=== PATIENT | female | born 1970 | race American Indian/Alaskan Native ===

== ENCOUNTER 2021-07-09 12:45 | Inpatient (IN) ==
[2021-07-09 13:56] LABS: Albumin Level 3.4 gm/dl (3.4-5.0); BUN Creatinine Ratio 20.7 (10-20); Calcium 8.6 mg/dl (8.5-10.1); Creatinine Clr Calc Pharmacy 111.5 ml/min; Est GFR (African American) 121.2 ml/min; Est GFR (Non-African American) 104.6 ml/min; Potassium 3.7 mmol/L (3.5-5.1)
[2021-07-09 14:07] LABS: Bilirubin,Total 0.3 mg/dl (0.2-1); Globulin 3.5 gm/dl (2.5-4.0); Total Protein 6.9 gm/dl (6.4-8.2)
[2021-07-09 14:19] LABS: Basophils # (auto) 0.02 K/uL (0-0.2); Basophils % (auto) 0.3 %; Eosinophils # (auto) 0.39 K/uL (0-0.5); Eosinophils % (auto) 5.6 %; Hematocrit (blood only) 35.9 % (37-47); Hemoglobin 11.8 g/dL (12.0-16.0); Immature Granulocytes # (auto) 0.03 K/uL (0.00-0.02); Immature Granulocytes % (auto) 0.4 %; Lymphocytes # (auto) 2.05 K/uL (1.2-3.4); Lymphocytes % (auto) 29.6 %; Mean Corpuscular Hgb Conc 32.9 g/dL (32-36); Mean Corpuscular Volume 85.1 fL (80-100); Monocytes # (auto) 0.27 K/uL (0.11-0.59); Monocytes % (auto) 3.9 %; Neutrophils # (auto) 4.17 K/uL (1.4-6.5); Neutrophils % (auto) 60.2 %; Platelet Count 3 K/uL (130-400); RDW Coefficient of Variation 14.8 % (11.5-14.5); Red Blood Count 4.22 M/uL (4.2-5.4); White Blood Count 6.93 K/uL (4.8-10.8)
[2021-07-09 14:45] LABS: Hematocrit (blood only) 37.4 % (37-47); Hemoglobin 12.1 g/dL (12.0-16.0); Mean Corpuscular Hgb Conc 32.4 g/dL (32-36); Mean Corpuscular Volume 86.6 fL (80-100); Platelet Count 1 K/uL (130-400); RDW Coefficient of Variation 14.7 % (11.5-14.5); RDW Standard Deviation 46.1 fL (36.4-46.3); Red Blood Count 4.32 M/uL (4.2-5.4); White Blood Count 8.44 K/uL (4.8-10.8)
[2021-07-09] MEDS ORDERED: dexAMETHasone 4 MG TAB PO ONE ×2 (15:00→15:15)
[2021-07-09] MEDS ORDERED: PANTOprazole 40 MG TAB PO STA (15:02)
[2021-07-09 15:19] LABS: Reticulocyte % 1.8 % (0.5-2.0); Reticulocytes # 0.08 10^6/uL (0.02-0.10)
[2021-07-09 15:38] LABS: Basophils # (auto) 0.02 K/uL (0-0.2); Basophils % (auto) 0.2 %; Eosinophils # (auto) 0.42 K/uL (0-0.5); Immature Granulocytes # (auto) 0.05 K/uL (0.00-0.02); Immature Granulocytes % (auto) 0.6 %; Lymphocytes # (auto) 2.54 K/uL (1.2-3.4); Lymphocytes % (auto) 30.1 %; Monocytes # (auto) 0.35 K/uL (0.11-0.59); Monocytes % (auto) 4.1 %; Neutrophils # (auto) 5.06 K/uL (1.4-6.5); Polychromasia 1+
--- NOTE | 2021-07-09 15:41 | CT Scan Report ---
HEAD CT NONCONTRAST CT DOSE: 537.48 mGy.cm HISTORY: Headache, thrombocytopenia TECHNIQUE: Multiaxial CT images of the head were performed without the use of intravenous contrast. A utomated exposure control was utilized for this study. A dose lowering technique was utilized adheri ng to the principles of ALARA. Comparison: None. Findings: Mild mucosal thickening within the left sphenoid sinus posteriorly. The remaining paranasal sinuses and mastoid air cells are clear. The calvarium and skull base are intact. The ventricles and sulci are within normal limits. There is no mass, hematoma, midline shift, or acute infarct. Impression: No acute intracranial abnormality. ACT 112: Negative or not required by law. Electronically signed by: Duong Campos M.D. 07/09/2021 3:40 PM
--- NOTE | 2021-07-09 16:17 | History & Physical Report ---
Date of Service July 09, 2021 Assessment & Plan (1) Thrombocytopenia: Plan: 50 y/o F Hx HTN, DM II, anxiety/depression. The pt presents with heavy vaginal bleeding and upural areas over her lower extremities and less so over her trunk and upper extremities. She has not had fevers and denies a headache, confusion or abdominal pain. Inital labs are notable for a platelet count of 1. She had received Pfizer COVID vaccine this month, however, there are no reports of associated ITP with this particular vaccine. 1) Thrombocytopenia - presumed ITP - received dexamethasone in ER and should remain on a 4 day course. As she is actively bleeding, we will likely transfuse one unit of platelets. We are pending the result of a PT, PTT, PF4, dimer, fibrinogen to r/o Vaccine-Induced Immune Thrombocytopenia and Thrombosis prior to transfusing. 2) DM - sliding scale 3) HTN - cont Losartan, HCTZ 4) Anxiety/depression - cont duloxetine, carbamazepine, clonazepam, Keppra Full code Total time for this admit including review of labs, meds, imaging, records - discussion with pt and ER attending 38 min (2) Vaginal bleeding: (3) HTN (hypertension): (4) Depression: History of Present Illness Chief Complaint: vaginal bleeding, petechiae Primary Care Provider: Carlos Eduardo Catarino 50 y/o F Hx HTN, DM II, anxiety/depression. The pt presents with heavy vaginal bleeding and upural areas over her lower extremities and less so over her trunk and upper extremities. She has not had fevers and denies a headache, confusion or abdominal pain. Inital labs are notable for a platelet count of 1. She had received Pfizer COVID vaccine this month, however, there are no reports of associated ITP with this particular vaccine. PMH: 1) HTN 2) DM II 3) Depression/anxiety 4) Insomnia Surgical: 1) Cholecystectomy 2) Lithotripsy 3) C section Social: Does not smoke or drink Family: Noncontributory t current complaint Allergies Allergy/AdvReac Type Severity Reaction Status Date / Time Penicillins Allergy Severe Anaphylaxis Unverified 07/09/21 15:09 Home Medications Medication Instructions Recorded Confirmed Type carbamazepine 200 mg tablet 200 mg PO HS 07/09/21 07/09/21 History (Tegretol) clonazepam 1 mg tablet 1 mg PO HS 07/09/21 07/09/21 History duloxetine 20 mg capsule,delayed 20 mg PO QAM 07/09/21 07/09/21 History release hydrochlorothiazide 12.5 mg tablet 12.5 mg PO QAM PRN 07/09/21 07/09/21 History levetiracetam 250 mg tablet 250 mg PO QAM 07/09/21 07/09/21 History losartan 50 mg tablet 50 mg PO PM 07/09/21 07/09/21 History metformin 500 mg tablet 500 mg PO BID 07/09/21 07/09/21 History propranolol 10 mg tablet 10 mg PO BID 07/09/21 07/09/21 History Past Med/Surg History Social History Smoking Status: Never smoker Feels Safe at Home: Yes Review of Systems Review of Systems: Gen: Denies fevers, night sweats, rigors, fatigue, malaise, weight loss/gain ENT: Denies congestion, throat pain, hearing loss Eyes: Denies acute visual changes CV: Denies CP, palpitations Pulmonary: Denies SOB, cough, wheezing GI: Denies N/V, diarrhea, constipation Neuro: Denies acute or unilateral weakness, acute gait impairment, headache or acute visual changes Musculoskeletal: Denies joint pain, inflammation Endocrine: Denies polydipsia, polyuria Skin: Purpuric rash over back of LEs and area of upper ext and trunk Physical Exam Physical Exam: General: AAO x 3, no distress ENT: No erythema or exudates, no thrush Eyes: JACOB, EOMI Head and neck: Normocephalic, atraumatic, No JVD, neck is supple. Chest/heart: Nontender, S1,2, RRR, no murmurs, no gallops Lungs: CTAB, no wheezing or crackles Abdomen: Nontender, nondistended, BS+ Neuro: AAO x 3, speech is clear, no unilateral weakness or loss of sensation, coordination intact Musculoskeletal: No joint inflammation, muscle tenderness, FROM Skin: Purpura are coalesced over LEs and sparse over upper extrems and trunk Extremities: No clubbing, cyanosis, edema Results & Data Results & Data ([facility]) Vital Signs (Past 12 Hours) Vital Signs Temp Pulse Pulse Resp BP BP Pulse Ox 07/09/21 16:00 78 18 103/71 99 07/09/21 14:46 93 H 18 105/67 100 07/09/21 13:16 97.7 F 103 H 18 107/73 98 PG Care Time/CCT Total # of Minutes Spent Total Time Spent with Patient: Total time spent is greater than 50% in coordination of care (as documented) at patient's floor/unit and/or counseling patient: Coding Level of Care Code 78488 Initial Inpt Care Lvl 3 Diagnoses Thrombocytopenia D69.6 Vaginal bleeding N93.9 HTN (hypertension) I10 Depression F32.9
[2021-07-09 16:28] LABS: Reticulocyte % 1.8 % (0.5-2.0); Reticulocytes # 0.07 10^6/uL (0.02-0.10)
[2021-07-09 17:28] LABS: Fibrinogen 261 mg/dl (184-400); Partial Thromboplastin Time 25.1 Seconds (21.0-31.0); Prothrombin Time 9.9 Seconds (9.0-12.0)
[2021-07-09 17:35] LABS: D Dimer 1220 ug/L FEU (0-500)
--- NOTE | 2021-07-09 18:21 | Emergency Department Note ---
History of Present Illness General Chief complaint: Vaginal Bleeding Stated complaint: Vaginal Bleeding, headache Source: patient and RN notes reviewed Mode of arrival: ambulatory Limitations: no limitations History of Present Illness Provider complaint: Heavy vaginal bleeding, bruising. Maximum Pain Intensity: 5 This patient is a 50-year-old female who presents to the emergency department with complaints of vaginal bleeding x2 days with clots. Patient states she has developed a petechial rash and bruising. 1 month ago the patient tested positive for Covid in [place] and approximately 1 week ago she had her first Pfizer vaccination. Patient states she has been fairly asymptomatic until now. She did develop a slight headache today. She denies any vomiting, blood in the stools or difficulty urinating. She denies any chest pain or shortness of breath. She has not had a fever recently. Home Medications Medication Instructions Recorded Confirmed Type carbamazepine 200 mg tablet 200 mg PO HS 07/09/21 07/09/21 History (Tegretol) clonazepam 1 mg tablet 1 mg PO HS 07/09/21 07/09/21 History duloxetine 20 mg capsule,delayed 20 mg PO QAM 07/09/21 07/09/21 History release hydrochlorothiazide 12.5 mg tablet 12.5 mg PO QAM PRN 07/09/21 07/09/21 History levetiracetam 250 mg tablet 250 mg PO QAM 07/09/21 07/09/21 History losartan 50 mg tablet 50 mg PO PM 07/09/21 07/09/21 History metformin 500 mg tablet 500 mg PO BID 07/09/21 07/09/21 History propranolol 10 mg tablet 10 mg PO BID 07/09/21 07/09/21 History Allergies Allergy/AdvReac Type Severity Reaction Status Date / Time Penicillins Allergy Severe Anaphylaxis Unverified 07/09/21 15:09 Past Med/Surg History Social History Smoking Status: Never smoker Hx Alcohol Use: No Hx Substance Use: No Preferred Language: Italian Communication Ability: Effective 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 and A total of 10 systems reviewed and were otherwise negative Physical Exam Vital Signs Vital Signs - 24 hr 07/09/21 13:16 07/09/21 14:46 07/09/21 16:00 Temperature 36.5 C Temperature Source Temporal Artery Scan Pulse Rate 103 H Pulse Rate [Apical] 93 H 78 Pulse Rhythm [Apical] Regular Respiratory Rate 18 18 18 Blood Pressure 107/73 Blood Pressure [Left Arm] 105/67 103/71 Blood Pressure Mean 84 Blood Pressure Mean [Left Arm] 79 81 Pulse Oximetry 98 100 99 Oxygen Delivery Method Room Air Room Air Sepsis Recent Fever Within 48 Hours No Sepsis New/Unexplained Change in Mental Status No Sepsis Action Taken by Nursing No Action Required Vital signs reviewed. General: Well-appearing 50 yo female, in no significant distress. HEENT: No scleral icterus, PERRLA, neck supple. Petechiae noted to the oral mucosa, lips. Cardiovascular: Regular rate and rhythm, no extra sounds. Pulmonary: Clear to auscultation bilaterally, normal work of breathing. Abdomen: Soft, nontender, nondistended, positive bowel sounds. Musculoskeletal: Atraumatic, no peripheral edema. : Deferred as pt fully dressed waist down. Neurologic: Patient awake alert and oriented x 3, full strength in all 4 extremities. Cranial nerves 2 through 12 grossly intact. Skin: Warm, dry, petechial rash noted to the lower extremities bilaterally. Bruising noted to the upper extremities bilaterally Course Administered Medications Discontinued Medications Dexamethasone (Dexamethasone 4 Mg Tab) 40 mg PO NOW ONE Stop: 07/09/21 15:16 Last Admin: 07/09/21 15:36 Dose: 40 mg Documented by: [id number] Pantoprazole Sodium (Pantoprazole 40 Mg Tab) 40 mg PO NOW STA Stop: 07/09/21 15:03 Last Admin: 07/09/21 15:19 Dose: 40 mg Documented by: [id number] Medical Decision Making Differential Diagnosis Differential diagnosis of this patient's presentation includes viral etiology, malignancy, medication effect, vaccine reaction, dysfunctional uterine bleeding, ruptured ovarian cyst, . Medical Records Attestation: I reviewed the patient's medical records. Home Medications Current Medication List: was personally reviewed by me Laboratory Data Attestation: I reviewed the patient's lab results. Result diagrams: 07/09/21 14:30 07/09/21 13:21 Lab Results 07/09/21 07/09/21 07/09/21 Range/Units 13:21 13:21 13:21 WBC 6.93 (4.8-10.8) K/uL RBC 4.22 (4.2-5.4) M/uL Hgb 11.8 L (12.0-16.0) g/dL Hct 35.9 L (37-47) % MCV 85.1 (80-100) fL MCH 28.0 (25-34) pg MCHC 32.9 (32-36) g/dL RDW Std Deviation 46.0 (36.4-46.3) fL RDW Coeff of Modesta 14.8 H (11.5-14.5) % Plt Count 3 L* (130-400) K/uL Immature Gran % (Auto) 0.4 % Neut % (Auto) 60.2 % Lymph % (Auto) 29.6 % Mclean % (Auto) 3.9 % Eos % (Auto) 5.6 % Baso % (Auto) 0.3 % Reticulocyte % (Auto) 1.8 (0.5-2.0) % Neut # (Auto) 4.17 (1.4-6.5) K/uL Lymph # (Auto) 2.05 (1.2-3.4) K/uL Mclean # (Auto) 0.27 (0.11-0.59) K/uL Eos # (Auto) 0.39 (0-0.5) K/uL Baso # (Auto) 0.02 (0-0.2) K/uL Reticulocyte # 0.08 (0.02-0.10) 10^6/uL Immature Gran # (Auto) 0.03 H (0.00-0.02) K/uL Polychromasia Peripher Smr Path Cons Sodium 142 (136-145) mmol/L Potassium 3.7 (3.5-5.1) mmol/L Chloride 107 (98-107) mmol/L Carbon Dioxide 27 (21-32) mmol/L Anion Gap 8.0 (3-11) BUN 13 (7-18) mg/dl Creatinine 0.63 (0.6-1.2) mg/dl Est Cr Clr Drug Dosing 111.5 ml/min Est GFR ( Amer) 121.2 ml/min Est GFR (Non-Af Amer) 104.6 ml/min BUN/Creatinine Ratio 20.7 H (10-20) Glucose 154 H (70-99) mg/dl Calcium 8.6 (8.5-10.1) mg/dl Total Bilirubin 0.3 (0.2-1) mg/dl AST 38 H (15-37) U/L ALT 54 (12-78) U/L Alkaline Phosphatase 100 (45-117) U/L Total Protein 6.9 (6.4-8.2) gm/dl Albumin 3.4 (3.4-5.0) gm/dl Globulin 3.5 (2.5-4.0) gm/dl Albumin/Globulin Ratio 1.0 (0.9-2) Blood Type Antibody Screen 07/09/21 07/09/21 07/09/21 Range/Units 14:30 14:30 14:30 WBC 8.44 (4.8-10.8) K/uL RBC 4.32 (4.2-5.4) M/uL Hgb 12.1 (12.0-16.0) g/dL Hct 37.4 (37-47) % MCV 86.6 (80-100) fL MCH 28.0 (25-34) pg MCHC 32.4 (32-36) g/dL RDW Std Deviation 46.1 (36.4-46.3) fL RDW Coeff of [place] 14.7 H (11.5-14.5) % Plt Count 1 L* D (130-400) K/uL Immature Gran % (Auto) 0.6 % Neut % (Auto) 60.0 % Lymph % (Auto) 30.1 % Mclean % (Auto) 4.1 % Eos % (Auto) 5.0 % Baso % (Auto) 0.2 % Reticulocyte % (Auto) (0.5-2.0) % Neut # (Auto) 5.06 (1.4-6.5) K/uL Lymph # (Auto) 2.54 (1.2-3.4) K/uL Mclean # (Auto) 0.35 (0.11-0.59) K/uL Eos # (Auto) 0.42 (0-0.5) K/uL Baso # (Auto) 0.02 (0-0.2) K/uL Reticulocyte # (0.02-0.10) 10^6/uL Immature Gran # (Auto) 0.05 H (0.00-0.02) K/uL Polychromasia 1+ Peripher Smr Path Cons Cancelled Sodium (136-145) mmol/L Potassium (3.5-5.1) mmol/L Chloride (98-107) mmol/L Carbon Dioxide (21-32) mmol/L Anion Gap (3-11) BUN (7-18) mg/dl Creatinine (0.6-1.2) mg/dl Est Cr Clr Drug Dosing ml/min Est GFR ( Amer) ml/min Est GFR (Non-Af Amer) ml/min BUN/Creatinine Ratio (10-20) Glucose (70-99) mg/dl Calcium (8.5-10.1) mg/dl Total Bilirubin (0.2-1) mg/dl AST (15-37) U/L ALT (12-78) U/L Alkaline Phosphatase (45-117) U/L Total Protein (6.4-8.2) gm/dl Albumin (3.4-5.0) gm/dl Globulin (2.5-4.0) gm/dl Albumin/Globulin Ratio (0.9-2) Blood Type O Positive Antibody Screen NEGATIVE 07/09/21 Range/Units 16:16 WBC (4.8-10.8) K/uL RBC (4.2-5.4) M/uL Hgb (12.0-16.0) g/dL Hct (37-47) % MCV (80-100) fL MCH (25-34) pg MCHC (32-36) g/dL RDW Std Deviation (36.4-46.3) fL RDW Coeff of Mod[place] (11.5-14.5) % Plt Count (130-400) K/uL Immature Gran % (Auto) % Neut % (Auto) % Lymph % (Auto) % Mclean % (Auto) % Eos % (Auto) % Baso % (Auto) % Reticulocyte % (Auto) 1.8 (0.5-2.0) % Neut # (Auto) (1.4-6.5) K/uL Lymph # (Auto) (1.2-3.4) K/uL Mclean # (Auto) (0.11-0.59) K/uL Eos # (Auto) (0-0.5) K/uL Baso # (Auto) (0-0.2) K/uL Reticulocyte # 0.07 (0.02-0.10) 10^6/uL Immature Gran # (Auto) (0.00-0.02) K/uL Polychromasia Peripher Smr Path Cons Sodium (136-145) mmol/L Potassium (3.5-5.1) mmol/L Chloride (98-107) mmol/L Carbon Dioxide (21-32) mmol/L Anion Gap (3-11) BUN (7-18) mg/dl Creatinine (0.6-1.2) mg/dl Est Cr Clr Drug Dosing ml/min Est GFR ( Amer) ml/min Est GFR (Non-Af Amer) ml/min BUN/Creatinine Ratio (10-20) Glucose (70-99) mg/dl Calcium (8.5-10.1) mg/dl Total Bilirubin (0.2-1) mg/dl AST (15-37) U/L ALT (12-78) U/L Alkaline Phosphatase (45-117) U/L Total Protein (6.4-8.2) gm/dl Albumin (3.4-5.0) gm/dl Globulin (2.5-4.0) gm/dl Albumin/Globulin Ratio (0.9-2) Blood Type Antibody Screen Imaging Data Radiologist's Impression: Head CT 07/09/21 15:[address] DOSE: 537.48 mGy.cm HISTORY: Headache, thrombocytopenia TECHNIQUE: Multiaxial CT images of the head were performed without the use of intravenous contrast. Automated exposure control was utilized for this study. A dose lowering technique was utilized adhering to the principles of ALARA. Comparison: None. Findings: Mild mucosal thickening within the left sphenoid sinus posteriorly. The remaining paranasal sinuses and mastoid air cells are clear. The calvarium and skull base are intact. The ventricles and sulci are within normal limits. There is no mass, hematoma, midline shift, or acute infarct. Impression: No acute intracranial abnormality. ACT 112: Negative or not required by law. Electronically signed by: Duong Campos M.D. 07/09/2021 3:40 PM Blood Pressure Blood Pressure Findings: Normal blood pressure Blood Pressure Disposition: did not require urgent referral MDM Narrative This patient was evaluated and appeared to be in no significant distress. IV access was obtained and laboratory work was drawn. Patient's lab work was initially drawn at triage and patient was noted to have a platelet count of 3000. Repeat confirms profound thrombocytopenia. Patient has a stable hemoglobin of 11.8 and her vital signs have remained stable. Patient's creatinine is 0.68. She was hydrated with normal saline solution. Head CT was performed as the patient complained of a headache. The study is negative for acute intracranial abnormality. I did discuss the case with Dr. Choe of hematology. He has recommended dexamethasone 40 mg p.o. daily x4 days. He has stated that as the patient is bleeding this is an indication for platelet transfusion however she may have a thrombotic complication. As the patient's vital signs have remained stable and her hemoglobin is nearly 12, urgent transfusion with platelets did not seem to be prudent given the risk. Patient was given 40 mg of p.o. Protonix and 40 mg of p.o. dexamethasone. The case was discussed with the hospitalist service, Dr. Carnes. He will evaluate the patient for admission and further management. Impression & Plan Acute idiopathic thrombocytopenic purpura, Vaginal bleeding, Lab test positive for detection of COVID-19 virus Discharge Plan Visit Data Chief Complaint: Vaginal Bleeding Stated Complaint: Vaginal Bleeding, headache Discharge Problem: Acute idiopathic thrombocytopenic purpura, Vaginal bleeding, Lab test positive for detection of COVID-19 virus Patient Disposition: Admitted As Inpatient Discharge Instructions Interventions: ED Discharge Assessment Last Done: 07/09/21 19:27
[2021-07-09] MEDS ORDERED: carBAMazepine 200 MG TABLET PO SCH (21:00)
[2021-07-09] MEDS: PROPRANOLOL HCL 10 MG TAB PO SCH (21:53)
[2021-07-09] MEDS: LOSARTAN POTASSIUM 50 MG TAB PO SCH (21:53)
[2021-07-09] MEDS: clonazePAM 1 MG TAB PO SCH (21:54)
[2021-07-09 22:50] LABS: Appearance Urine Cloudy (Clear); Color Urine Red
[2021-07-09 22:54] LABS: Bacteria Urine Automated Negative (Negative); Bilirubin Urine Negative (Negative); Blood Urine 3+ (Negative); Epithelial Cell Urine Auto >30 /lpf (0-5); Glucose Urine UA Negative (Negative); Ketones Urine Negative (Negative); Leukocyte Esterase Urine Negative (Negative); Nitrite Urine Negative (Negative); Protein Urine 1+ (Negative); RBC Urine Automated >30 /hpf (0-4); Specific Gravity Urine 1.023 (1.000-1.030); Urobilinogen Urine Negative (Negative); pH Urine 5.5 (4.5-7.5)
[2021-07-09 23:58] LABS: Hematocrit (blood only) 33.4 % (37-47); Mean Corpuscular Hgb Conc 32.9 g/dL (32-36); Platelet Count 1 K/uL (130-400); RDW Coefficient of Variation 14.7 % (11.5-14.5); RDW Standard Deviation 45.7 fL (36.4-46.3); Red Blood Count 3.93 M/uL (4.2-5.4); White Blood Count 6.25 K/uL (4.8-10.8)
[2021-07-09 23:59] LABS: Platelet Estimate SIGNIFIC DECREASED (Normal)
[2021-07-10 07:46] LABS: Basophils # (auto) 0.01 K/uL (0-0.2); Basophils % (auto) 0.1 %; Eosinophils # (auto) 0.01 K/uL (0-0.5); Eosinophils % (auto) 0.1 %; Hemoglobin 10.8 g/dL (12.0-16.0); Immature Granulocytes # (auto) 0.07 K/uL (0.00-0.02); Immature Granulocytes % (auto) 0.6 %; Lymphocytes # (auto) 1.67 K/uL (1.2-3.4); Lymphocytes % (auto) 14.8 %; Mean Corpuscular Hemoglobin 28.1 pg (25-34); Mean Corpuscular Hgb Conc 32.7 g/dL (32-36); Mean Corpuscular Volume 85.9 fL (80-100); Monocytes # (auto) 0.35 K/uL (0.11-0.59); Monocytes % (auto) 3.1 %; Neutrophils # (auto) 9.16 K/uL (1.4-6.5); Neutrophils % (auto) 81.3 %; Platelet Count 1 K/uL (130-400); Platelet Estimate SIGNIFIC DECREASED (Normal); RDW Coefficient of Variation 14.9 % (11.5-14.5); RDW Standard Deviation 46.1 fL (36.4-46.3); Red Blood Count 3.84 M/uL (4.2-5.4); White Blood Count 11.27 K/uL (4.8-10.8)
[2021-07-10 08:18] LABS: BUN Creatinine Ratio 18.1 (10-20); Calcium 8.4 mg/dl (8.5-10.1); Creatinine Clr Calc Pharmacy 89.2 ml/min; Est GFR (African American) 101.2 ml/min; Est GFR (Non-African American) 87.3 ml/min; Potassium 3.8 mmol/L (3.5-5.1)
[2021-07-10] MEDS: hydroCHLOROthiazide 25 MG TAB PO SCH (08:21)
[2021-07-10] MEDS: dexAMETHasone 4 MG TAB PO SCH (08:22)
[2021-07-10] MEDS: DULoxetine HCL 20 MG CAP PO SCH (08:23)
[2021-07-10] MEDS: PROPRANOLOL HCL 10 MG TAB PO SCH ×2 (08:23→20:55)
[2021-07-10] MEDS: levETIRAcetam 250 MG TAB PO SCH (08:23)
[2021-07-10] MEDS: PANTOprazole 40 MG TAB PO SCH (08:24)
--- NOTE | 2021-07-10 10:26 | Consultation Report ---
HEMATOLOGY CONSULTATION DATE OF CONSULT: 07/09/2021. REASON FOR CONSULTATION: Immune thrombocytopenia. HISTORY OF PRESENT ILLNESS: The patient is a very pleasant 50-year-old [place] female who presents t o [facility] on 07/09/2021 with heavy vaginal bleeding and a petechial rash. She h as a very interesting recent medical history where she developed COVID-19 infection in [place], PCR prov en and received supportive care. She relates receiving COVID-19 vaccination approximately [address] her infection despite her relative who happens to be a medical doctor in [place] who told her waitin g period is 90 days for initiation of vaccine. That said, when the patient presented to [facility], she was again retested and found to be positive for COVID-19 despite having a PCR t est that was done through [facility], which was negative. The patient is asymptomatic at this time other than fatigue and vaginal bleeding. She definitely gaspar s evidence of petechiae and wet purpura on gross examination at bedside this morning. I was contacte d by the admitting hospitalist and recommended administration of p.o. dexamethasone 40 mg daily over the next 4 days. Patient denies any previous history of immune thrombocytopenia. PAST MEDICAL HISTORY: Significant for hypertension, type 2 diabetes mellitus, depression/anxiety, an d insomnia. PAST SURGICAL HISTORY: Includes cholecystectomy, lithotripsy and section. MEDICATIONS: Include propranolol 10 mg p.o. b.i.d., metformin 500 mg p.o. b.i.d., losartan 50 mg p.o . q. daily, Keppra 250 mg p.o. q. daily, hydrochlorothiazide 12.5 mg p.o. q.a.m., fluoxetine 20 mg p. o. q. daily, clonazepam 1 mg p.o. at bedtime, Tegretol 200 mg p.o. at bedtime. ALLERGIES: PENICILLINS. SOCIAL HISTORY: Patient is with children, nondrinker, nonsmoker. FAMILY HISTORY: Noncontributory. REVIEW OF SYSTEMS: CONSTITUTIONAL: Negative for fevers, chills or sweats. No anorexia or weight loss. SKIN: Positive for petechiae and a wet purpura. No history of dermatoses. HEENT: Negative for headaches, lightheadedness or dizziness. No acute visual or hearing deficits. No sinus symptoms, sore throat or dysphagia. LYMPH: No history of lymphoproliferative disease. CARDIAC: Negative for coronary artery disease, no angina or palpitations. PULMONARY: Negative for COPD. No shortness of breath, dyspnea, or orthopnea. Positive history of C OVID-19. GASTROINTESTINAL: Negative for abdominal pain, nausea, vomiting, hematochezia or melena stools. GENITOURINARY: Positive for dysfunctional uterine bleeding. ENDOCRINE: Positive for diabetes by history. MUSCULOSKELETAL: No arthralgias or myalgias. No focal muscle weakness. NEUROLOGIC: Negative for seizure, stroke or migraine headache. HEMATOLOGIC: Positive for anemia and severe thrombocytopenia. PHYSICAL EXAMINATION: GENERAL: Very pleasant, conversant 50-year-old [place] female in no acute distress. VITAL SIGNS: Temperature 36.4, pulse 81, respiratory rate 18, blood pressure 107/73. SKIN: Petechiae and a wet purpura seen on upper extremities and buccal mucosa. HEENT: Atraumatic, normocephalic. Eyes: PERRLA. EOMI. Sclerae are nonicteric. No conjunctival in jection. Nares patent without rhinorrhea or discharge. Throat per skin examination. NECK: Supple without JVD or thyromegaly. HEART: Regular rate and rhythm. No clicks, rubs, murmurs or gallops. LUNGS: Clear to auscultation bilaterally. ABDOMEN: Soft, nontender, nondistended, without palpable hepatosplenomegaly. EXTREMITIES: No calf tenderness or swelling. No clubbing, cyanosis or edema. NEUROLOGICALLY: She is awake, alert and oriented x3. Cranial nerves II-XII are intact. No gross mo tor or sensory deficits are noted. LABORATORY DATA: WBC count 11,270, hemoglobin 10.8, platelet count 1000, absolute neutrophil 9160. D-dimer 1220. Sodium 137, potassium 3.8, chloride 107, carbon dioxide 23, creatinine 0.79, BUN 14. UA: WBCs 10-30, positive for blood, positive for protein and positive COVID-19 PCR. IMPRESSION: 1. Immune thrombocytopenic purpura. 2. Anemia, etiology unclear, suspect underlying iron deficiency attributable to bleeding. 3. Positive COVID-19 PCR (asymptomatic). 4. Probable urinary tract infection. PLAN: It was my pleasure to visit with the patient at bedside. She is a very pleasant 50-year-old [place] female with a remote history of active COVID infection, status post Pfizer vaccine x1 administ ered 30 days after acute infection in her [place]. Patient presents with dysfunctiona l uterine bleeding and a severely low platelets. Started dexamethasone 40 mg p.o. q. daily yesterday . Platelet count remains quite low today. I would like to give it another 24 hours; if she fails to bump in a positive direction we will then recommend IV immunoglobulin 1 gram/kg daily x2 doses total . Obviously continue peripheral blood count monitoring on a daily basis and support with appropriate blood products, particularly packed RBCs. Ultimately, once she is stabilized and discharged, we rajiv l make arrangements to have her seen in the office for a followup visit. I generally obtain a CBC ev madeline 3 days until the patient is seen in followup. Thank you very much for allowing me to participate in her care. If you have any questions or concern s, please feel free to contact me at any time. Job ID: [id number]
--- NOTE | 2021-07-10 17:24 | Electrocardiogram Report ---
Test Reason : Blood Pressure : / mmHG Vent. Rate : 087 BPM Atrial Rate : 087 BPM P-R Int : 148 ms QRS Dur : 066 ms QT Int : 350 ms P-R-T Axes : 042 010 017 degrees QTc Int : 421 ms Normal sinus rhythm Possible Left atrial enlargement Left ventricular hypertrophy Abnormal ECG No previous ECGs available Confirmed by Abhay Hairston ([id number]) on 07/10/2021 5:24:19 PM Referred By: Carlos Eduardo Toribio Confirmed By:Abhay Hairston
[2021-07-10] MEDS: clonazePAM 1 MG TAB PO SCH (20:54)
[2021-07-10] MEDS: LOSARTAN POTASSIUM 50 MG TAB PO SCH (20:54)
--- NOTE | 2021-07-10 21:58 | Hospitalist Progress Note ---
Date of Service July 10, 2021 Assessment & Plan (1) Thrombocytopenia: Plan: 50 y/o F Hx HTN, DM II, anxiety/depression. The pt presents with heavy vaginal bleeding and upural areas over her lower extremities and less so over her trunk and upper extremities. She has not had fevers and denies a headache, confusion or abdominal pain. Inital labs are notable for a platelet count of 1. She had received [employer] COVID vaccine this month, however, there are no reports of associated ITP with this particular vaccine. 1) Thrombocytopenia - presumed ITP - received dexamethasone in ER and should remain on a 4 day course. Patient reports her bleeding has decreased. will recheck cbc in am. May consider IV IG if no improvement. . 2) DM - sliding scale 3) HTN - cont Losartan, HCTZ 4) Anxiety/depression - cont duloxetine, carbamazepine, clonazepam, Keppra Full code Total time for this admit including review of labs, meds, imaging, records - discussion with pt and ER attending 38 min (2) Vaginal bleeding: (3) HTN (hypertension): (4) Depression: Admission and Anticipated Discharge Date Admission Date: July 09, 2021 Subjective Patient reports feeling better. She states her bleeding has decreased. Review of Systems Review of Systems: All systems reviewed & are unremarkable except as noted in HPI & below Physical Exam Physical Exam: General: AAO x 3, no distress ENT: No erythema or exudates, no thrush Eyes: JACOB, EOMI Head and neck: Normocephalic, atraumatic, No JVD, neck is supple. Chest/heart: Nontender, S1,2, RRR, no murmurs, no gallops Lungs: CTAB, no wheezing or crackles Abdomen: Nontender, nondistended, BS+ Neuro: AAO x 3, speech is clear, no unilateral weakness or loss of sensation, coordination intact Musculoskeletal: No joint inflammation, muscle tenderness, FROM Skin: Purpura are coalesced over LEs and sparse over upper extrems and trunk Extremities: No clubbing, cyanosis, edema Results & Data Results & Data ([facility]) Vital Signs (Past 12 Hours) Vital Signs Temp Pulse Resp BP Pulse Ox 07/10/21 20:04 36.8 C 92 H 20 117/75 98 07/10/21 15:14 36.6 C 94 H 18 118/77 98 07/10/21 11:34 36.6 C 92 H 17 118/77 97 PG Care Time/CCT Total # of Minutes Spent Total Time Spent with Patient: Total time spent is greater than 50% in coordination of care (as documented) at patient's floor/unit and/or counseling patient: Coding Level of Care Code 55809 Subseq Hosp Care Lvl 2 Diagnoses Thrombocytopenia D69.6 Vaginal bleeding N93.9 HTN (hypertension) I10 Depression F32.9 Time Spent (min) 25
[2021-07-11 07:12] LABS: BUN Creatinine Ratio 23.4 (10-20); Calcium 8.3 mg/dl (8.5-10.1); Est GFR (Non-African American) 103.5 ml/min; Potassium 3.5 mmol/L (3.5-5.1)
[2021-07-11 07:23] LABS: Hematocrit (blood only) 28.7 % (37-47); Hemoglobin 9.5 g/dL (12.0-16.0); Mean Corpuscular Hemoglobin 28.3 pg (25-34); Mean Corpuscular Hgb Conc 33.1 g/dL (32-36); Mean Corpuscular Volume 85.4 fL (80-100); Platelet Count 5 K/uL (130-400); RDW Coefficient of Variation 14.8 % (11.5-14.5); RDW Standard Deviation 46.2 fL (36.4-46.3); Red Blood Count 3.36 M/uL (4.2-5.4); White Blood Count 12.21 K/uL (4.8-10.8)
[2021-07-11 07:24] LABS: Platelet Estimate SIGNIFIC DECREASED (Normal)
[2021-07-11] MEDS: PROPRANOLOL HCL 10 MG TAB PO SCH ×2 (08:24→21:05)
[2021-07-11] MEDS: PANTOprazole 40 MG TAB PO SCH (08:24)
[2021-07-11] MEDS: dexAMETHasone 4 MG TAB PO SCH (08:24)
[2021-07-11] MEDS: DULoxetine HCL 20 MG CAP PO SCH (08:25)
[2021-07-11] MEDS: levETIRAcetam 250 MG TAB PO SCH (08:26)
[2021-07-11] MEDS: hydroCHLOROthiazide 25 MG TAB PO SCH (08:26)
[2021-07-11] MEDS ORDERED: IMMUNE GLOBULIN (HUMAN) SOLN IV SCH (11:15)
[2021-07-11] MEDS: IMMUNE GLOBULIN(HUMAN) 10% 100 ML IV SCH ×7 (14:12→18:31)
[2021-07-11] MEDS: ACETAMINOPHEN 325 MG TAB PO PRN (18:30)
[2021-07-11] MEDS: LOSARTAN POTASSIUM 50 MG TAB PO SCH (21:05)
[2021-07-11] MEDS: clonazePAM 1 MG TAB PO SCH (21:05)
--- NOTE | 2021-07-11 22:18 | Hospitalist Progress Note ---
Date of Service July 11, 2021 Assessment & Plan (1) Thrombocytopenia: Plan: 50 y/o F Hx HTN, DM II, anxiety/depression. The pt presents with heavy vaginal bleeding and upural areas over her lower extremities and less so over her trunk and upper extremities. She has not had fevers and denies a headache, confusion or abdominal pain. Inital labs are notable for a platelet count of 1. She had received [employer] COVID vaccine this month, however, there are no reports of associated ITP with this particular vaccine. 1) Thrombocytopenia - presumed ITP - received dexamethasone in ER and should remain on a 4 day course. Patient reports her bleeding has decreased. Ordered IVIG. 1 g/kg x 2 doses daily. Platelets now 5. . 2) DM - sliding scale 3) HTN - cont Losartan, HCTZ 4) Anxiety/depression - cont duloxetine, carbamazepine, clonazepam, Keppra Full code Total time for this admit including review of labs, meds, imaging, records - discussion with pt and ER attending 38 min (2) Vaginal bleeding: (3) HTN (hypertension): (4) Depression: Admission and Anticipated Discharge Date Admission Date: July 09, 2021 Subjective Patient reports no new symptoms Review of Systems Review of Systems: All systems reviewed & are unremarkable except as noted in HPI & below Physical Exam Physical Exam: General: AAO x 3, no distress ENT: No erythema or exudates, no thrush Eyes: JACOB, EOMI Head and neck: Normocephalic, atraumatic, No JVD, neck is supple. Chest/heart: Nontender, S1,2, RRR, no murmurs, no gallops Lungs: CTAB, no wheezing or crackles Abdomen: Nontender, nondistended, BS+ Neuro: AAO x 3, speech is clear, no unilateral weakness or loss of sensation, coordination intact Musculoskeletal: No joint inflammation, muscle tenderness, FROM Skin: Purpura are coalesced over LEs and sparse over upper extrems and trunk Extremities: No clubbing, cyanosis, edema Results & Data Results & Data ([facility]) Vital Signs (Past 12 Hours) Vital Signs Temp Pulse Resp BP BP Pulse Ox 07/11/21 19:00 36.8 C 79 16 149/89 H 98 07/11/21 16:17 36.7 C 80 18 129/79 98 07/11/21 14:32 82 119/76 07/11/21 14:21 83 125/75 07/11/21 11:00 36.6 C 84 19 113/75 98 PG Care Time/CCT Total # of Minutes Spent Total Time Spent with Patient: Total time spent is greater than 50% in coordination of care (as documented) at patient's floor/unit and/or counseling patient: Coding Level of Care Code 21447 Subseq Hosp Care Lvl 2 Diagnoses Thrombocytopenia D69.6 Vaginal bleeding N93.9 HTN (hypertension) I10 Depression F32.9 Time Spent (min) 25
[2021-07-12 07:18] LABS: BUN Creatinine Ratio 23.9 (10-20); Creatinine Clr Calc Pharmacy 103.1 ml/min; Est GFR (African American) 118.2 ml/min; Potassium 3.8 mmol/L (3.5-5.1)
[2021-07-12 07:27] LABS: Hematocrit (blood only) 27.4 % (37-47); Hemoglobin 9.1 g/dL (12.0-16.0); Mean Corpuscular Hemoglobin 28.3 pg (25-34); Mean Corpuscular Hgb Conc 33.2 g/dL (32-36); Mean Corpuscular Volume 85.1 fL (80-100); Mean Platelet Volume 11.7 fL (7.4-10.4); Platelet Count 44 K/uL (130-400); Platelet Estimate SIGNIFIC DECREASED (Normal); RDW Coefficient of Variation 14.9 % (11.5-14.5); RDW Standard Deviation 46.1 fL (36.4-46.3); Red Blood Count 3.22 M/uL (4.2-5.4); White Blood Count 11.41 K/uL (4.8-10.8)
[2021-07-12] MEDS: levETIRAcetam 250 MG TAB PO SCH (08:22)
[2021-07-12] MEDS: hydroCHLOROthiazide 25 MG TAB PO SCH (08:22)
[2021-07-12] MEDS: PROPRANOLOL HCL 10 MG TAB PO SCH (08:22)
[2021-07-12] MEDS: dexAMETHasone 4 MG TAB PO SCH (08:23)
[2021-07-12] MEDS: DULoxetine HCL 20 MG CAP PO SCH (08:23)
[2021-07-12] MEDS: PANTOprazole 40 MG TAB PO SCH (08:23)
[2021-07-12] MEDS: IMMUNE GLOBULIN(HUMAN) 10% 100 ML IV SCH ×7 (11:22→15:08)
[2021-07-12] MEDS: ACETAMINOPHEN 325 MG TAB PO PRN (13:17)
--- NOTE | 2021-07-12 16:03 | Discharge Summary ---
Date of Service July 12, 2021 Admission HPI Per Admitting Provider 50 y/o F Hx HTN, DM II, anxiety/depression. The pt presents with heavy vaginal bleeding and upural areas over her lower extremities and less so over her trunk and upper extremities. She has not had fevers and denies a headache, confusion or abdominal pain. Inital labs are notable for a platelet count of 1. She had received [employer] COVID vaccine this month, however, there are no reports of associated ITP with this particular vaccine. PMH: 1) HTN 2) DM II 3) Depression/anxiety 4) Insomnia Surgical: 1) Cholecystectomy 2) Lithotripsy 3) C section Social: Does not smoke or drink Family: Noncontributory t current complaint Principal Diagnosis Idiopathic thrombocytopenia Discharge Exam General: AAO x 3, no distress ENT: No erythema or exudates, no thrush Eyes: JACOB, EOMI Head and neck: Normocephalic, atraumatic, No JVD, neck is supple. Chest/heart: Nontender, S1,2, RRR, no murmurs, no gallops Lungs: CTAB, no wheezing or crackles Abdomen: Nontender, nondistended, BS+ Neuro: AAO x 3, speech is clear, no unilateral weakness or loss of sensation, coordination intact Musculoskeletal: No joint inflammation, muscle tenderness, FROM Extremities: No clubbing, cyanosis, edema Discharge Data Allergies Allergy/AdvReac Type Severity Reaction Status Date / Time Penicillins Allergy Severe Anaphylaxis Unverified 07/09/21 15:09 Consultations 07/09/21 15:50 ED Decision to Admit Stat 07/09/21 20:18 Consult Hematology Routine Ordered Studies 07/09/21 15:00 CT head/brain wo con Stat Hospital Course (1) Thrombocytopenia: 50 y/o F Hx HTN, DM II, anxiety/depression. The pt presents with heavy vaginal bleeding and upural areas over her lower extremities and less so over her trunk and upper extremities. She has not had fevers and denies a headache, confusion or abdominal pain. Inital labs are notable for a platelet count of 1. She had received [employer] COVID vaccine this month, however, there are no reports of associated ITP with this particular vaccine. 1) Thrombocytopenia - presumed ITP - completed dexamethasone for 4 days and IV IG for 2 days (1g/kg) Patient reports her bleeding has decreased. Platelets improved to 44. will need CBC every 3 days with followup in 1-2 weeks . 2) DM - sliding scale 3) HTN - cont Losartan, HCTZ 4) Anxiety/depression - cont duloxetine, carbamazepine, clonazepam, Keppra 5) COVID-19: Patient had COVID less than 45 days ago. She has recovered. She has received her first dose of the covid 19 vaccine. Her positvie PCR is likely a false positive with her shedding non viable virus which would mean that she is not contagious. She can remain positive for testing covid 19 for up to 3 months after her initial diagnosis. Patient has no symptoms of Covid 19 and can return to school without delay. D/W Infectious control who agree. She should continue regular COVID 19 precautions. She should not delay the second vaccine. (2) Vaginal bleeding: (3) HTN (hypertension): (4) Depression: Total Time Total Time Spent Total Time Spent (In Minutes): 32 Discharge Plan Discharge Items Patient Disposition: Home - Self-Care Reason For Visit: CONTRAINDICATED Discharge Diagnosis: COVID-19 Activity: Resume your previous activity Non-emergency contact: Primary Care Provider Call non-emergency contact if: you have any medication questions Follow-up/Referrals: Carlos Eduardo Toribio PA-C [Primary Care Provider] - Diet: Regular Addtl Attending Provider Instructions: You have been hospitalized for an acute medical problem. During your stay at [facility], we have made an effort to correct the problem that brought you to the hospital while keeping you as comfortable as possible. Medications were used to bring your condition under control and your discharge instructions will include directions for any medications you should take after leaving the hospital. Please make sure you see your Primary Care Provider as part of your follow up plan. You were diagnosed with COVID 19 within the past 45 days. Patient may continue to shedding non viable virus up to 90 days which may result in you being positive for up to 3 month eventhough you are no longer contagious. Given that you have no symptoms, it seems unlikely this is a true positive. Would recommend to continue to wear face masks while in public. I do not feel you need to delay your second dose of covid 19 Pending Studies at Discharge: No Stand-Alone Forms: My [facility], Work/School Release, Smoking Cessation Medications and DC Order Prescriptions: Continued losartan 50 mg Tablet 50 mg PO PM RF: 0 metformin 500 mg Tablet 500 mg PO BID RF: 0 clonazepam 1 mg Tablet 1 mg PO HS RF: 0 carbamazepine [Tegretol] 200 mg Tablet 200 mg PO HS RF: 0 propranolol 10 mg Tablet 10 mg PO BID RF: 0 levetiracetam 250 mg Tablet 250 mg PO QAM RF: 0 duloxetine 20 mg Capsule,Delayed Release(Dr/Ec) 20 mg PO QAM RF: 0 hydrochlorothiazide 12.5 mg Tablet 12.5 mg PO QAM PRN (Reason: Blood Pressure) RF: 0 Discharge Orders: Discharge Order (Routine); Ordered 07/12/21 Ordered By: Kenan Benitez Admission Data Admit Date/Time: 07/09/21 16:23 Attending Provider: Kenan Benitez Admit Provider: Harry Carnes Primary Care Provider: Carlos Eduardo Toribio Other Providers: Harry Carnes ; Duarte Choe V. Other Interventions: Discharge Summary Assessment (RN) Last Done: 07/12/21 16:38 Coding Level of Care Code D/C DAY MANAGEMENT >30 MINS Diagnoses Thrombocytopenia D69.6 Vaginal bleeding N93.9 HTN (hypertension) I10 Depression F32.9
== END 2021-07-12 18:55 | disposition home or self-care (01) | DRG 813 ==
LOC: ED 12:45 → 2S 16:23 → SUATTDRO 16:23 → 2S 19:27
DX: I10 Essential (primary) hypertension; F41.9 Anxiety disorder, unspecified; Z86.16 Personal history of COVID-19; Z79.84 Long term (current) use of oral hypoglycemic drugs; E11.9 Type 2 diabetes mellitus without complications; Z79.899 Other long term (current) drug therapy; D69.3 Immune thrombocytopenic purpura; N93.8 Other specified abnormal uterine and vaginal bleeding; Z88.0 Allergy status to penicillin; F32.9 Major depressive disorder, single episode, unspecified; D50.9 Iron deficiency anemia, unspecified